=== PATIENT | female | born 1995 | race Caucasian/White ===

== ENCOUNTER 2023-06-16 22:22 | Emergency (ER) | payer MEDICAID ==
[~2023-06-16] VITALS: Ht 162.5 cm; Wt 95.3 kg
[~2023-06-16 22:22] MED LIST: ALBUTEROL0.09 MG/A2 IH; NKHM PO; PREDNICOT20 MG PO; ZITHROMAX Z PA250 MG PO; ZOLOFT25 MG PO
[2023-06-16] MEDS ORDERED: Ondansetron Hydrochloride 4 MG TAB SL ONE (23:05)
[2023-06-16] MEDS ORDERED: Acetaminophen/Hydrocodone 5 MG/325 MG TABLET PO ONE (23:05)
[2023-06-16] MEDS ORDERED: SILVER SULFADIAZINE 25 GM TUBE T ONE (23:05)
[2023-06-17] MEDS ORDERED: SILVADENE,SSD C50 GM T (00:27)
[2023-06-17] MEDS ORDERED: Acetaminophen/Hydrocodone 5 MG/325 MG TABLET PO ONE (00:35)
== END 2023-06-17 00:40 | disposition home or self-care (01) ==
LOC: ED 22:22
DX: T25.291A Burn of second degree of multiple sites of right ankle and foot, initial encounter (principal); T24.111A Burn of first degree of right thigh, initial encounter; F17.200 Nicotine dependence, unspecified, uncomplicated; Z88.5 Allergy status to narcotic agent; Z88.0 Allergy status to penicillin; X12.XXXA Contact with other hot fluids, initial encounter; Y93.89 Activity, other specified; Y92.89 Other specified places as the place of occurrence of the external cause; Y99.8 Other external cause status

== ENCOUNTER 2024-10-07 07:05 | Inpatient (IN) | payer OTHER ==
[2024-10-07] VITALS (25 sets, daily range): BP systolic 63–124; BP diastolic 32–93
[~2024-10-07] VITALS: Ht 157.5 cm; Wt 96.2 kg
[~2024-10-07 07:05] MED LIST changes: +SILVADENE,SSD C50 GM T
[2024-10-07] MEDS ORDERED: Ondansetron Hydrochloride 4 MG/2 ML VIAL IV ONE (07:15)
[2024-10-07] MEDS ORDERED: SODIUM CHLORIDE 0.9% 1,000 ML IV ONE (07:15)
[2024-10-07 08:13] LABS: BUN 41 mg/dl (9-23); SGPT/ALT 17 U/L (5-49)
[2024-10-07] MEDS ORDERED: Midazolam Hydrochloride 2 MG/2 ML VIAL IV ONE (08:25)
[2024-10-07 08:36] LABS: MEAN CELL VOLUME 86.3 fl (81.0-99.0); MEAN CORPUSCULAR HGB 26.2 pg (27.0-31.0); MEAN PLATELET VOLUME 12.9 fl (9.6-12.3); NUCLEATED RED BLOOD CELL 0.0 % (0.0-0.0); NUCLEATED RED BLOOD CELL 0.0 10*3/uL (0.0-0.0); PLATELET COUNT AUTOMATED 505 10*3/uL (130-400); RED CELL DISTRI WIDTH 17.0 % (0-14.5)
[2024-10-07 08:38] LABS: BILIRUBIN Negative (Negative); BLOOD Trace-Lysed (Negative); CLARITY Turbid (Clear); COLOR Dark Yellow (Yellow); KETONE Trace (Negative); LEUKO ESTERASE 3+ (Negative); NITRITE Negative (Negative); PH 6.5 (4.5-8.0); SPECIFIC GRAVITY 1.020 (1.001-1.030); UROBILINOGEN 1.0 E.U./dl (0.0-1.0)
[2024-10-07 08:57] LABS: MANUAL DIFF REFLEX YES
[2024-10-07 09:00] LABS: PLATELET SUFFICIENCY HIGH (NORMAL)
[2024-10-07 09:02] LABS: VACUOLATION OF NEUTROPHILS SLIGHT
[2024-10-07 09:19] LABS: BACTERIA 3+; MUCOUS 1+; WBC TNTC wbc/hpf (0-5)
[2024-10-07] MEDS ORDERED: Cefepime Hydrochloride 2 GM in SODIUM CHLORIDE 0.9% 50 ML IV ONE (09:30)
[2024-10-07] MEDS ORDERED: SODIUM CHLORIDE 0.9% 1,000 ML IV SCH ×2 (09:30→16:30)
[2024-10-07] MEDS ORDERED: POTASSIUM CHLORIDE IN WATER 100 ML IV SCH (10:00)
[2024-10-07] MEDS ORDERED: CYCLOBENZAPRINE10 MG PO (11:11)
[2024-10-07] MEDS ORDERED: PERCOCET 5-3251 EACH PO (11:11)
[2024-10-07] MEDS ORDERED: FOAM BANDAGE 1 EACH BANDAGE T ONE (11:55)
[2024-10-07] MEDS ORDERED: HEEL PROTECTOR DEVICE ONE (12:18)
[2024-10-07] MEDS ORDERED: Sodium Hypochlorite 0.125% (1/4 STRENGTH DAKIN'S) 480 ML SOL T SCH (12:55)
[2024-10-07] MEDS ORDERED: Acetaminophen/Hydrocodone 5 MG/325 MG TABLET PO PRN (13:45)
[2024-10-07] MEDS ORDERED: ACETAMINOPHEN 325 MG TAB PO PRN (13:45)
[2024-10-07] MEDS ORDERED: BISACODYL 10 MG SUPP R PRN (13:45)
[2024-10-07] MEDS ORDERED: Ondansetron Hydrochloride 4 MG/2 ML VIAL IV PRN (13:45)
[2024-10-07] MEDS ORDERED: Ondansetron Hydrochloride 4 MG TAB SL PRN (14:35)
[2024-10-07] MEDS ORDERED: Vancomycin Hydrochloride 1,000 MG in SODIUM CHLORIDE 0.9% 250 ML IV SCH ×2 (15:05→23:00)
[2024-10-07] MEDS ORDERED: Metoclopramide Hydrochloride 10 MG/2 ML VIAL IM ONE (15:40)
[2024-10-07] MEDS ORDERED: POTASSIUM CHLORIDE 20 MEQ TAB PO ONE (16:55)
[2024-10-07] MEDS ORDERED: POTASSIUM CHLORIDE 100 ML IV SCH (17:00)
[2024-10-07 17:27] LABS: MANUAL DIFF REFLEX YES; MEAN CELL VOLUME 87.0 fl (81.0-99.0); MEAN CORPUSCULAR HGB 26.3 pg (27.0-31.0); MEAN PLATELET VOLUME 13.3 fl (9.6-12.3); NUCLEATED RED BLOOD CELL 0.0 % (0.0-0.0); NUCLEATED RED BLOOD CELL 0.0 10*3/uL (0.0-0.0); PLATELET COUNT AUTOMATED 448 10*3/uL (130-400); RED CELL DISTRI WIDTH 17.1 % (0-14.5)
[2024-10-07 17:46] LABS: BUN 48 mg/dl (9-23); SGPT/ALT 13 U/L (5-49)
[2024-10-07 17:56] LABS: PLATELET SUFFICIENCY HIGH (NORMAL)
[2024-10-07 17:57] LABS: STOMATOCYTE FEW
[2024-10-07] MEDS ORDERED: SODIUM CHLORIDE 0.9% 500 ML IV ONE (19:30)
[2024-10-07] MEDS ORDERED: NOREPINEPHRINE BITARTRATE/D5W 250 ML IV SCH (19:35)
[2024-10-07] MEDS ORDERED: IOHEXOL 350 MG/ML 100 ML VIAL IV ONE (22:40)
[2024-10-07] MEDS ORDERED: SODIUM CHLORIDE 0.9% 100 ML BAG IV ONE (22:40)
[2024-10-07] MEDS ORDERED: ACETAMINOPHEN 70 ML IV PRN (22:45)
[2024-10-07 23:30] LABS: URINE AMPHETAMINES Negative (1000ng/ml); URINE BARBITURATES Negative (200ng/ml); URINE BENZODIAZEPINES Positive (200ng/ml); URINE CANNABINOIDS (THC) Positive (50ng/ml); URINE COCAINE Negative (300ng/ml); URINE METHADONE Negative (300ng/ml); URINE OPIATES Negative (300ng/ml); URINE PHENCYCLIDINE Negative (25ng/ml)
[2024-10-08] VITALS (55 sets, daily range): BP systolic 88–119; BP diastolic 29–77
[2024-10-08] MEDS ORDERED: ACETAMINOPHEN 100 ML IV ONE (00:27)
[2024-10-08 02:09] LABS: MANUAL DIFF REFLEX YES; MEAN CELL VOLUME 86.5 fl (81.0-99.0); MEAN CORPUSCULAR HGB 26.8 pg (27.0-31.0); MEAN PLATELET VOLUME 11.9 fl (9.6-12.3); NUCLEATED RED BLOOD CELL 0.0 % (0.0-0.0); NUCLEATED RED BLOOD CELL 0.0 10*3/uL (0.0-0.0); PLATELET COUNT AUTOMATED 491 10*3/uL (130-400); RED CELL DISTRI WIDTH 16.6 % (0-14.5)
[2024-10-08 03:01] LABS: PLATELET SUFFICIENCY HIGH (NORMAL)
[2024-10-08 06:00] LABS: MEAN CELL VOLUME 86.1 fl (81.0-99.0); MEAN CORPUSCULAR HGB 27.2 pg (27.0-31.0); MEAN PLATELET VOLUME 12.7 fl (9.6-12.3); NUCLEATED RED BLOOD CELL 0.0 % (0.0-0.0); NUCLEATED RED BLOOD CELL 0.0 10*3/uL (0.0-0.0); PLATELET COUNT AUTOMATED 471 10*3/uL (130-400); RED CELL DISTRI WIDTH 16.7 % (0-14.5)
[2024-10-08 06:17] LABS: MANUAL DIFF REFLEX YES
[2024-10-08 06:31] LABS: BUN 41 mg/dl (9-23); FREE T4 1.28 ng/dl (0.89-1.76); SGPT/ALT 17 U/L (5-49)
[2024-10-08 06:35] LABS: STOMATOCYTE FEW; VACUOLATION OF NEUTROPHILS SLIGHT
[2024-10-08 06:36] LABS: PLATELET SUFFICIENCY HIGH (NORMAL)
[2024-10-08 06:43] LABS: LDL CHOLESTEROL 32 mg/dL (9-159)
[2024-10-08] MEDS ORDERED: POTASSIUM CHLORIDE 20 MEQ TAB PO ONE (07:25)
[2024-10-08] MEDS ORDERED: SODIUM CHLORIDE 0.9% 100 ML BAG IV ONE (07:55)
[2024-10-08] MEDS ORDERED: IOHEXOL 350 MG/ML 100 ML VIAL IV ONE ×2 (07:55→08:16)
[2024-10-08] MEDS ORDERED: SODIUM CHLORIDE 0.9% 100 ML IV ONE (08:16)
[2024-10-08] MEDS ORDERED: POTASSIUM CHLORIDE IN WATER 100 ML IV SCH ×2 (10:00→13:00)
[2024-10-08 11:42] LABS: BUN 33 mg/dl (9-23)
[2024-10-08] MEDS ORDERED: LEPTOSPERMUM HONEY 4 X 5 INCH WOUND DRESSING T ONE (12:00)
[2024-10-08] MEDS ORDERED: ADHESIVE BANDAGE 1 EACH BANDAGE T ONE (12:01)
[2024-10-08] MEDS ORDERED: Lactated Ringer's Solution 1,000 ML IV ONE (12:25)
[2024-10-08] MEDS ORDERED: HEPARIN SODIUM 250 ML IV SCH (12:35)
[2024-10-08 14:15] LABS: ACT PARTIAL THROMBO TIME 31.0 SECONDS (20.0-32.1)
[2024-10-08] MEDS ORDERED: Vancomycin Hydrochloride 1,000 MG in SODIUM CHLORIDE 0.9% 250 ML IV SCH (23:00)
[2024-10-09 09:07] LABS: HEMOGOLBIN A1C 4.9 % (4.8-5.6)
== END 2024-10-08 17:40 | disposition short-term general hospital (02) | DRG 720 ==
LOC: ED 07:05 → EDHOLD 09:43 → 5E 09:43 → ICCU 16:33
PROVIDERS: Internal Medicine; Student in an Organized Health Care Education/Training Program; ADMIT Internal Medicine; ATTEND Internal Medicine
PROC: 02HV33Z Insertion of Infusion Device into Superior Vena Cava, Percutaneous Approach (ICD-10-PCS; principal; 2024-10-07)
PROC: B548ZZA Ultrasonography of Superior Vena Cava, Guidance (ICD-10-PCS; 2024-10-07)
PROC: 05HM33Z Insertion of Infusion Device into Right Internal Jugular Vein, Percutaneous Approach (ICD-10-PCS; 2024-10-07)
PROC: B543ZZA Ultrasonography of Right Jugular Veins, Guidance (ICD-10-PCS; 2024-10-07)
PROC: 30233N1 Transfusion of Nonautologous Red Blood Cells into Peripheral Vein, Percutaneous Approach (ICD-10-PCS; 2024-10-07)
DX: A41.9 Sepsis, unspecified organism (principal); L89.154 Pressure ulcer of sacral region, stage 4; L89.320 Pressure ulcer of left buttock, unstageable; L89.313 Pressure ulcer of right buttock, stage 3; L89.210 Pressure ulcer of right hip, unstageable; L89.890 Pressure ulcer of other site, unstageable; L89.610 Pressure ulcer of right heel, unstageable; L89.620 Pressure ulcer of left heel, unstageable; G82.50 Quadriplegia, unspecified; R65.21 Severe sepsis with septic shock; L89.892 Pressure ulcer of other site, stage 2; L89.511 Pressure ulcer of right ankle, stage 1; S31.000A Unspecified open wound of lower back and pelvis without penetration into retroperitoneum, initial encounter; E83.41 Hypermagnesemia; G93.41 Metabolic encephalopathy; E87.20 Acidosis, unspecified; D63.1 Anemia in chronic kidney disease; I82.441 Acute embolism and thrombosis of right tibial vein; E87.6 Hypokalemia; D64.9 Anemia, unspecified; N39.0 Urinary tract infection, site not specified; S90.32XA Contusion of left foot, initial encounter; D75.839 Thrombocytosis, unspecified; N17.9 Acute kidney failure, unspecified; N76.89 Other specified inflammation of vagina and vulva; G82.20 Paraplegia, unspecified; Z88.4 Allergy status to anesthetic agent; Z88.0 Allergy status to penicillin; Z79.899 Other long term (current) drug therapy; Z79.2 Long term (current) use of antibiotics; X58.XXXA Exposure to other specified factors, initial encounter; Y93.89 Activity, other specified; Y92.89 Other specified places as the place of occurrence of the external cause; Y99.8 Other external cause status; Z82.49 Family history of ischemic heart disease and other diseases of the circulatory system